=== PATIENT | male | born 1950 | race Caucasian/White ===

== ENCOUNTER 2023-10-10 12:33 | Emergency (ER) | payer OTHER ==
[2023-10-10 12:42] VITALS: TEMP 98
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
[2023-10-10 14:14] VITALS: BP 137/76; PULSE 78; RESP 18
== END 2023-10-10 14:14 | disposition home or self-care (01) ==
LOC: EC 12:33
CPT/HCPCS: 99283